=== PATIENT | female | born 1990 | race Caucasian/White ===

== ENCOUNTER 2020-04-23 22:59 | Emergency (ER) | payer OTHER ==
[2020-04-23] MEDS ORDERED: Pepcid 20 MG VIAL IV ONE ×2 (23:06→23:10)
[2020-04-23] MEDS ORDERED: solu-MEDROL 125 MG ONE (23:06)
[2020-04-23] MEDS ORDERED: EPINEPHRINE 1MG/ML AMP ONE (23:06)
[2020-04-23] MEDS ORDERED: BENADRYL 50 MG/ML ONE (23:06)
[2020-04-23] MEDS ORDERED: PROVENTIL 2.5 MG/3 ML NEB IH ONE ×2 (23:10→23:15)
[2020-04-23] MEDS ORDERED: EPINEPHRINE 1MG/ML AMP IM ONE (23:10)
[2020-04-23] MEDS ORDERED: solu-MEDROL 125 MG IV ONE (23:10)
[2020-04-23] MEDS ORDERED: BENADRYL 50 MG/ML IV ONE (23:10)
--- NOTE | 2020-04-24 00:29 | ERPHSYRPT ---
- History of Present Illness Time Seen by Provider: 04/23/20 23:15 Source: patient Exam Limitations: no limitations Patient Subjective Stated Complaint: "I think I'm allergic to peanuts. I had some at 930 and not I can't breath." Triage Nursing Assessment: 30 y/o white female with cc: allergic reaction. Pt reported having peanuts roughly two hours prior to onset of symptoms. Pt alert et oriented x3 answering questions appropriately. Pt reported acute sweling of the eyes and lips, difficulty swallowing, tightness in her neck, and difficulty breathing. Noted swelling/edema to bilateral eyes and upper lips. Neck suplle non-tender. No noted stridor or hives. Symmetrical chest expansion. Lungs clear to ascultation. Heart tones regular/clear. Radial pulses equal bilateral Physician History: Patient is a 30-year-old female presents to our ED for evaluation of allergic reaction due to peanut ingestion. Patient ingested peanuts approximately 2 hours ago. Were the last hour patient developed swelling and tightness around her throat. Patient experienced shortness of breath and nasal congestion. Symptoms have been progressive. Upon arrival patient noticed her face and lips swelling. No pruritus. No hives. No nausea or vomiting. Patient voiced other complaints or concerns at this time. Patient adamantly denies a possibility of . Patient has no pain. Timing/Duration: today Severity: moderate Modifying Factors: Improves With: nothing Associated Symptoms: shortness of breath, No nausea, No vomiting, No abdominal pain, No diaphoresis, No cough, No chest pain, No fever, No headaches, No loss of appetite, No malaise, No rash, No syncope Allergies/Adverse Reactions: benzoin Allergy (Intermediate, Verified 04/23/20 23:14) Rash Home Medications: Desog-E.estradiol/E.estradiol [Azurette 28 Day Tablet] 1 tab PO DAILY 04/23/20 [History] Hx Tetanus, Diphtheria Vaccination/Date Given: Yes Hx Influenza Vaccination/Date Given: No Travel Risk - International Travel Have you traveled outside of the country in past 3 weeks: No - Coronavirus Screening Close contact with a COVID-19 positive Pt in past 14-21 Days: No - Review of Systems Constitutional: No Symptoms, No Fever, No Chills Eyes: No Symptoms Ears, Nose, & Throat: No Symptoms Respiratory: No Symptoms, No Cough, No Dyspnea Cardiac: No Symptoms, No Chest Pain, No Edema, No Syncope Abdominal/Gastrointestinal: No Symptoms, No Abdominal Pain, No Nausea, No Vomiting, No Diarrhea Genitourinary Symptoms: No Symptoms, No Dysuria Musculoskeletal: No Symptoms, No Back Pain, No Neck Pain Skin: No Rash Neurological: No Symptoms, No Dizziness, No Focal Weakness, No Sensory Changes Psychological: No Symptoms Endocrine: No Symptoms Hematologic/Lymphatic: No Symptoms Immunological/Allergic: No Symptoms All Other Systems: Reviewed and Negative - Past Medical History Pertinent Past Medical History: Yes Respiratory History: Asthma - Past Surgical History Past Surgical History: Yes Other Surgical History: ear tubes - Social History Smoking Status: Never smoker Exposure to second hand smoke: No Drug Use: none Patient Lives Alone: No - Female History Hx Last Menstrual Period: 04/08/20 Hx Now: No - Nursing Vital Signs Nursing Vital Signs: Initial Vital Signs Pulse Rate 80 04/23/20 23:00 Respiratory Rate 14 04/23/20 23:00 Blood Pressure 151/84 04/23/20 23:00 O2 Sat by Pulse Oximetry 97 04/23/20 23:00 - Physical Exam General Appearance: no apparent distress, alert Eye Exam: PERRL/EOMI, eyes nml inspection Ears, Nose, Throat Exam: normal ENT inspection, TMs normal, pharynx normal, moist mucous membranes, other (Swelling of eyelids and periorbital region. There is some swelling around the lips. No intraoral lesions. No trismus. Patient tolerating oral secretions well. No stridor.) Neck Exam: normal inspection, non-tender, supple, full range of motion Respiratory Exam: normal breath sounds, lungs clear, airway intact, No respiratory distress, No accessory muscle use Cardiovascular Exam: regular rate/rhythm, normal heart sounds, normal peripheral pulses Gastrointestinal/Abdomen Exam: soft, normal bowel sounds, No tenderness, No mass Back Exam: normal inspection, normal range of motion, No CVA tenderness, No vertebral tenderness Extremity Exam: normal inspection, normal range of motion, pelvis stable Neurologic Exam: alert, oriented x 3, cooperative, normal mood/affect, nml cerebellar function, nml station & gait, sensation nml, No motor deficits Skin Exam: normal color, warm, dry, No rash Lymphatic Exam: No adenopathy SpO2 Interpretation: normal SpO2: 98 O2 Delivery: Room Air - Course Nursing assessment & vital signs reviewed: Yes Ordered Tests: Active Orders 24 hr Category Date Time Status Pulse Oximetry (ED) STAT Care 04/23/20 23:10 Active Respiratory Therapy Assessment DAILY RT 04/23/20 23:19 Completed Medication Summary Discontinued Medications Generic Name Dose Route Start Last Admin Trade Name Dorcas MCNAMARA Reason Stop Dose Admin Albuterol Sulfate 2.5 mg 04/23/20 23:10 04/23/20 23:18 Proventil 2.5 Mg/3 Ml Neb IH 04/23/20 23:11 2.5 mg STAT ONE Administration Albuterol Sulfate Confirm 04/23/20 23:15 Proventil 2.5 Mg/3 Ml Neb Administered 04/23/20 23:16 Dose 2.5 mg IH .STK-MED ONE Diphenhydramine HCl Confirm 04/23/20 23:06 Benadryl 50 Mg/Ml Administered 04/23/20 23:07 Dose 50 mg .ROUTE .STK-MED ONE Diphenhydramine HCl 25 mg 04/23/20 23:10 04/23/20 23:15 Benadryl 50 Mg/Ml IV 04/23/20 23:11 25 mg STAT ONE Administration Diphenhydramine HCl 25 mg 04/24/20 01:09 04/24/20 01:18 Benadryl 50 Mg/Ml IV 04/24/20 01:10 25 mg STAT ONE Administration Diphenhydramine HCl Confirm 04/24/20 01:17 Benadryl 50 Mg/Ml Administered 04/24/20 01:18 Dose 50 mg .ROUTE .STK-MED ONE Epinephrine HCl Confirm 04/23/20 23:06 Epinephrine 1mg/Ml Amp Administered 04/23/20 23:07 Dose 1 mg .ROUTE .STK-MED ONE Epinephrine HCl 0.3 mg 04/23/20 23:10 04/23/20 23:40 Epinephrine 1mg/Ml Amp IM 04/23/20 23:11 0.3 mg STAT ONE Administration Famotidine Confirm 04/23/20 23:06 Pepcid 20 Mg Vial Administered 04/23/20 23:07 Dose 20 mg IV .STK-MED ONE Famotidine 20 mg 04/23/20 23:10 04/23/20 23:15 Pepcid 20 Mg Vial IV 04/23/20 23:11 20 mg STAT ONE Administration Methylprednisolone Sodium Succinate Confirm 04/23/20 23:06 Solu-Medrol 125 Mg Administered 04/23/20 23:07 Dose 125 mg .ROUTE .STK-MED ONE Methylprednisolone Sodium Succinate 125 mg 04/23/20 23:10 04/23/20 23:15 Solu-Medrol 125 Mg IV 04/23/20 23:11 125 mg STAT ONE Administration - Progress Progress: improved Progress Note: 04/24/20 01:42 Patient reassessed at approximately the 3-hour emily. Symptoms improved but not resolved. Patient remains tachycardic. Patient still feels her throat is tight. Lungs are clear. Patient advised admission for observation. Patient declined. Patient states she feels well enough and is requesting discharge. Patient is of sound mind and appropriate to make informed independent medical decisions. Patient understand that leaving AGAINST MEDICAL ADVICE can potentially result in increased risk of morbidity, mortality, short and long- term disability including . In spite of her risks patient has decided to leave AGAINST MEDICAL ADVICE. An AMA form was signed accordingly. Patient understand that she may return to our ED or go to her nearest ED at any time if she so changes her mind. Patient agrees to follow-up with her primary care doctor within 48 hours for reevaluation. Counseled pt/family regarding: diagnosis, need for follow-up - Departure Departure Disposition: AMA Clinical Impression: Allergic reaction, Anaphylaxis Condition: Stable Critical Care Time: No Referrals: TICO GONZALEZ [Primary Care Provider] - Additional Instructions: Discharge/Care Plan MORGANTHEODORA was seen on 04/24/20 in the Emergency Room. The patient was counseled regarding Diagnosis,Lab results, Imaging studies, need for follow up and when to return to the Emergency Room. Prescriptions given: Discharge Note I have spoken with the patient and/or caregivers. I have explained the patient's condition, diagnosis and treatment plan based on the information available to me at this time. I have answered the patient's and/or caregiver's questions and addressed any concerns. The patient and/or caregivers have as good understanding of the patient's diagnosis, condition and treatment plan as can be expected at this point. The vital signs have been stable. The patient's condition is stable and appropriate for discharge from the emergency department. The patient will pursue further outpatient evaluation with the primary care physician or other designated or consulting physician as outlined in the discharge instructions. The patient and/or caregivers are agreeable to this plan of care and follow-up instructions have been explained in detail. The patient and/or caregivers have received these instruction. The patient/and or caregivers are aware that any significant change in condition or worsening of symptoms should prompt an immediate return to this or the closest emergency department or call 911. Prescriptions: Diphenhydramine HCl 25 mg [Benadryl 25 mg Capsule] 25 mg PO Q6H PRN PRN 5 Days #20 capsule PRN Reason: Itching Prednisone 20 mg [Deltasone 20 mg] 40 mg PO DAILY 3 Days #6 tablet Epinephrine [Epipen] 0.3 mg IM DAILY PRN PRN 1 Days #2 ml PRN Reason: Allergies Famotidine 20 mg [Pepcid 20 MG] 20 mg PO BID 7 Days #14 tablet
[2020-04-24] MEDS ORDERED: BENADRYL 50 MG/ML IV ONE (01:09)
[2020-04-24] MEDS ORDERED: BENADRYL 50 MG/ML ONE (01:17)
[2020-04-24 02:10] VITALS: BP 133/85; PULSE 94; O2SAT 96
== END 2020-04-24 02:10 | disposition home or self-care (01) ==
LOC: ED 22:59
DX: T78.01XA Anaphylactic reaction due to peanuts, initial encounter (principal)
CPT/HCPCS: 94640; 94760; 96372; 96374; 96375; 96376; 99284; J0171; J1200; J2930; J7609; A9270-GY